=== PATIENT | female | born 1970 ===

== ENCOUNTER 2022-05-20 07:21 | Day surgery (SDC) | payer OTHER ==
[~2022-05-20] VITALS: Ht 175.3 cm; Wt 170.6 kg
[~2022-05-20 07:21] MED LIST: HYDROCHLOROTHIA25 MG PO; SYNTH PO
[2022-05-20] MEDS ORDERED: IBU600 MG PO (12:13)
== END 2022-05-20 18:15 | disposition home or self-care (01) ==
LOC: CIR.AMB 07:21
PROVIDERS: ATTEND Obstetrics & Gynecology Gynecology
DX: N84.0 Polyp of corpus uteri (principal); Z20.822 Contact with and (suspected) exposure to COVID-19; I10 Essential (primary) hypertension; J45.909 Unspecified asthma, uncomplicated; G47.33 Obstructive sleep apnea (adult) (pediatric); Z99.89 Dependence on other enabling machines and devices; E03.9 Hypothyroidism, unspecified; E66.01 Morbid (severe) obesity due to excess calories

== ENCOUNTER 2025-09-05 07:00 | Day surgery (SDC) | payer OTHER ==
[2025-08-29 13:49] VITALS: BP 128/81
[2025-08-29 15:33] LABS: INR 1.01
[~2025-09-05] VITALS: Ht 172.7 cm; Wt 158.8 kg
[~2025-09-05 07:00] MED LIST changes: +COZAAR50 MG PO; +ELIQUIS5 MG PO; +IBU600 MG PO; +MOUNJARO5 MG/0.5 M SQ
[2025-09-05] MEDS ORDERED: SUGAMMADEX SODIUM 200 MG/2 ML VIAL IV ONE (08:04)
[2025-09-05] MEDS ORDERED: POVIDONE-IODINE 118 ML BOTT TOP ONE (08:05)
[2025-09-05] MEDS ORDERED: IBU600 MG PO (09:10)
== END 2025-09-05 11:40 | disposition home or self-care (01) ==
LOC: U 07:00 → CIR.AMB 07:00
PROVIDERS: ATTEND Obstetrics & Gynecology Gynecology
DX: N85.02 Endometrial intraepithelial neoplasia [EIN] (principal); N95.0 Postmenopausal bleeding